=== PATIENT | female | born 1995 | race Caucasian/White ===

== ENCOUNTER 2018-09-05 19:03 | Inpatient (IN) | payer MEDICAID, OTHER ==
[~2018-09-05] VITALS: Ht 154.9 cm; Wt 79.2 kg
[~2018-09-05 19:03] MED LIST: LORA10TA7 PO
[2018-09-05 21:44] LABS: BASOPHILS % (AUTO) 0.5 % (0.0-2.0); EOSINOPHILS % (AUTO) 2.4 % (1.0-6.0); HEMATOCRIT 38.6 % (36-46); HEMOGLOBIN 13.2 g/dL (12.0-16.0); LYMPHOCYTES # (AUTO) 2.2 K/uL (1.0-4.8); LYMPHOCYTES % (AUTO) 24.9 % (22.0-44.0); MEAN CORPUSCULAR HEMOGLOBIN 32.6 pg (26.0-34.0); MEAN CORPUSCULAR HGB CONC 34.1 G/dL (31.0-37.0); MEAN CORPUSCULAR VOLUME 96 fL (80-100); MONOCYTES # (AUTO) 0.5 K/uL (0.1-1.0); MONOCYTES % (AUTO) 6.2 % (2.0-9.0); NEUTROPHILS # (AUTO) 5.8 K/uL (1.8-7.7); PLATELET COUNT (AUTO) 222 K/uL (150-450); RED BLOOD CELL COUNT(AUTO) 4.04 MIL/uL (4.00-5.20); RED CELL DISTRIBUTION WIDTH 13.4 % (11.5-14.5)
[2018-09-05 21:55] LABS: ANION GAP 9 mmol/L (8-16); CALCIUM, TOTAL 9.2 mg/dL (8.8-10.5); CARBON DIOXIDE 23 mmol/L (22-29); CHLORIDE 103 mmol/L (98-107); CREATININE 0.52 mg/dL (0.60-1.30); GLOMERULAR FILTR. RATE CALC > 60 mL/min (>60); GLUCOSE,RANDOM 93 mg/dL (70-110); POTASSIUM 3.9 mmol/L (3.5-5.1); SODIUM SERUM 135 mmol/L (136-145); UREA NITROGEN, BLOOD 9 mg/dL (7-18)
[2018-09-05] MEDS ORDERED: ACETAMINOPHEN 325 MG TABLET PO ONE (22:00)
[2018-09-05 22:09] LABS: AMPHET/METH SCREEN,URINE NEGATIVE (NEGATIVE); BARBITURATE SCREEN, URINE NEGATIVE (NEGATIVE); BENZODIAZEPINES SCREEN,URINE NEGATIVE (NEGATIVE); CANNABINOID SCREEN,URINE NEGATIVE (NEGATIVE); COCAINE SCREEN,URINE NEGATIVE (NEGATIVE); METHADONE SCREEN, URINE NEGATIVE (NEGATIVE); OPIATE SCREEN,URINE NEGATIVE (NEGATIVE); PHENCYCLIDINE SCREEN,URINE NEGATIVE (NEGATIVE)
[2018-09-05 22:21] LABS: ALANINE AMINOTRANSFERASE 9 U/L (12-78); ALKALINE PHOSPHATASE 58 U/L (46-116); ASPARTATE AMINOTRANSFERASE 12 U/L (15-37); BILIRUBIN,TOTAL 0.2 mg/dL (0.1-1.0); HCG,QUANTITATIVE 67155 mIU/mL (0-6); TOTAL PROTEIN, SERUM 7.4 g/dL (6.4-8.2)
[2018-09-05] MEDS ORDERED: HALOPERIDOL 5 MG TABLET PO PRN (22:45)
[2018-09-05] MEDS ORDERED: LORazepam 2 MG TABLET PO PRN (22:45)
[2018-09-05] MEDS ORDERED: ZOLPIDEM TARTRATE 10 MG TABLET PO PRN (22:45)
[2018-09-06 01:24] VITALS: BP 117/76
[2018-09-06 07:00] LABS: CHOL/HDL RATIO 3.3 (3.9-5.7)
[2018-09-06 08:20] VITALS: BP 98/55
[2018-09-06 17:11] VITALS: BP 127/71
[2018-09-07 08:37] LABS: HIV 1-2 SCREEN 4TH GEN W/RFLX Non Reactive (Non Reactive)
[2018-09-07 09:03] VITALS: BP 101/55
[2018-09-07] MEDS: PRENATAL VIT#96/FERROUS FUM/FA TABLET PO SCH (09:25)
[2018-09-07 16:36] VITALS: BP 126/75
[2018-09-08 08:05] VITALS: BP 122/58
[2018-09-08] MEDS: PRENATAL VIT#96/FERROUS FUM/FA TABLET PO SCH (10:04)
[2018-09-08] MEDS ORDERED: PREN-94 PO (17:52)
[2018-09-08 20:17] VITALS: BP 118/70
== END 2018-09-08 20:35 | disposition home or self-care (01) | DRG 751 ==
LOC: EMS 19:04 → 3EI 09-06 00:30
DX: F32.2 Major depressive disorder, single episode, severe without psychotic features (principal); E87.1 Hypo-osmolality and hyponatremia; X78.1XXA Intentional self-harm by knife, initial encounter; O99.341 Other mental disorders complicating pregnancy, first trimester; R41.83 Borderline intellectual functioning; O99.281 Endocrine, nutritional and metabolic diseases complicating pregnancy, first trimester; K59.00 Constipation, unspecified; Y93.89 Activity, other specified; Y92.89 Other specified places as the place of occurrence of the external cause; Y99.8 Other external cause status; Z3A.12 12 weeks gestation of pregnancy
CPT/HCPCS: 76801; 76817; 80074; 87389; 90686; G0480